=== PATIENT | male | born 1940 | race Caucasian/White ===

== ENCOUNTER → 2017-01-03 12:24 | Outpatient (CLI) | payer MEDICARE ==
[2015-04-15 09:10] VITALS: BMI 24.6
[~2017-01-03 12:24] MED LIST: BAYER CHEWABLE81 MG PO; CALCIUM 600 +1 EAC3 PO; COLACE100 MG PO; CORDARONE200 MG PO; HEMOCYTE PLUS C1 CAP PO; LASIX20 MG PO; MULTIPLE VITAMI1 TA1 PO; NEXIUM40 MG PO; OMEGA 3 FISH OI1 CAP PO; PLAVIX75 MG PO; PROSCAR5 MG PO; SENOKOT-S TABLE1 TAB PO; TOPROL XL25 MG; ULTRAM50 MG PO; XANAX XR 1 MG TA1 MG PO; ZOCOR40 MG PO
== END | disposition home or self-care (01) ==
LOC: D.CT 12:24
DX: C34.90 Malignant neoplasm of unspecified part of unspecified bronchus or lung (principal); C79.9 Secondary malignant neoplasm of unspecified site

== ENCOUNTER → 2017-03-09 11:57 | Outpatient (CLI) | payer MEDICARE ==
[2015-04-15 09:10] VITALS: BMI 24.6
== END | disposition home or self-care (01) ==
LOC: D.CT 11:57
DX: C33 Malignant neoplasm of trachea (principal); C77.1 Secondary and unspecified malignant neoplasm of intrathoracic lymph nodes; C77.0 Secondary and unspecified malignant neoplasm of lymph nodes of head, face and neck

== ENCOUNTER 2017-03-26 10:15 | Emergency (ER) | payer MEDICARE ==
[2015-04-15 09:10] VITALS: BMI 24.6
[2017-03-26 11:11] LABS: BASOPHILS 0.2 % (0-2); EOSINOPHILS 2.2 % (0-7); HEMATOCRIT 42.8 % (42.0-54.0); IMMATURE GRANULOCYTES 0.2 % (0-5); LYMPHOCYTES 8.3 % (15-50); MCHC 32.7 g/dL (31.0-37.0); MCV 91.6 fL (80.0-100.0); MEAN PLATELET VOLUME 9.8 fL (7.4-10.4); MONOCYTES 2.2 % (2-11); NEUTROPHILS 86.9 % (40-80); RBC 4.67 10x6/uL (4.20-6.10); RDW 13.9 % (11.5-14.5); WBC 5.6 10x3/uL (4.8-10.8)
[2017-03-26 11:16] LABS: PLATELET COUNT 156 10x3/uL (130-400)
[2017-03-26 11:32] LABS: APTT 26.9 SECONDS (22.8-39.4); INR 0.93 (0.85-1.17); PROTIME 12.3 SECONDS (11.6-15.0)
[2017-03-26 11:48] LABS: ALBUMIN 3.5 g/dL (3.4-5.0); ALKALINE PHOSPHATASE 75 U/L (46-116); ALT (SGPT) 22 U/L (10-68); BILIRUBIN - TOTAL 0.51 mg/dL (0.2-1.3); CALC OSMOLALITY 275 mosm/kg (275-300); CARBON DIOXIDE 29.8 mmol/L (21.0-32.0); CHLORIDE - SERUM 100 mmol/L (98-107); GLUCOSE 107 mg/dL (74-106); PROTEIN - SERUM 7.6 g/dL (6.4-8.2); SODIUM 137 mmol/L (136-145); UREA NITROGEN 17 mg/dL (7-18); eGFR NON AFRICAN AMERICAN 77 mL/min (90-120)
== END 2017-03-26 12:07 | disposition home or self-care (01) ==
LOC: D.ER 10:15
PROVIDERS: Emergency Medicine; Nurse Practitioner Acute Care
DX: R04.2 Hemoptysis (principal); I10 Essential (primary) hypertension; C34.90 Malignant neoplasm of unspecified part of unspecified bronchus or lung; C79.9 Secondary malignant neoplasm of unspecified site

== ENCOUNTER → 2017-04-26 11:22 | Outpatient (CLI) | payer MEDICARE ==
[2015-04-15 09:10] VITALS: BMI 24.6
== END | disposition home or self-care (01) ==
LOC: D.RAD 11:22
DX: R06.02 Shortness of breath (principal)

== ENCOUNTER 2017-05-06 11:55 | Inpatient (IN) | payer MEDICARE ==
[~2017-05-06] VITALS: Ht 172.7 cm; Wt 60.8 kg
--- NOTE | ~2017-05-06 | CN ---
PATIENT NAME:DONNIE BATES MEDICAL RECORD: [id number] : 38 LOCATION:D.MS [id number] ADMIT DATE: 05/06/17 ACCOUNT: [id number] CONSULTING PHYSICIAN: MARTHA DOBBINS MD REFERRING PHYSICIAN: KATRINA NAGEL MD DATE OF CONSULTATION: 05/08/2017 CHIEF COMPLAINT: Difficulty breathing. I have discussed this case personally with Dr. Miller. I personally reviewed the CT images. The patient has lung cancer. He has a huge right neck mass with tracheal deviation to the left. I have personally reviewed the bronchoscopic pictures with Dr. Miller. The patient appears to have tumor infiltration into the left main stem bronchus. There is mediastinal shift. He has compression or at least abutment of the left main stem bronchus by the main pulmonary artery. I am fearful with placement of a stent would lead to rupture of the bronchus or exsanguinating hemorrhage from the tumor or exsanguinating hemorrhage from the main pulmonary artery. I do not think there is really much that we can do for palliation for this patient to make it more comfortable during the dying process. I have discussed my findings with Dr. Miller as well as with the patient. This is a consultation note addendum. For the typed portion of the consult note, please see the chart. This would include a past medical and surgical history, current medications, social history, family history and allergies. Nothing aggravates. Nothing alleviates. The patient has had some hemoptysis. The patient is short of breath at rest. He has dyspnea on exertion as well. He has completed atelectasis of the left lung. I can see a little bit of the left upper lobe bronchus on a CT scan. I think that it is really a hopeless situation and I have explained this to him. PHYSICAL EXAMINATION: GENERAL: The patient appears acutely ill. Also appears chronically ill. VITAL SIGNS: Reviewed. EARS: External ears appear normal. NECK: Trachea shifted to left. There is a huge right neck mass. PULMONARY: Labored, decreased breath sounds on left chest. There are intercostal retractions. CARDIOVASCULAR: Regular rhythm. ABDOMEN: No peritonitis with movement. EXTREMITIES: No peripheral cyanosis. INTEGUMENT: No intertriginous rash. PSYCHIATRIC: Anxious affect. NEUROLOGIC: Answers questions appropriately, moves all extremities well. BACK: Mild thoracic kyphosis is present. LYMPHATICS: No lymphangitic streaking of the exposed extremities. IMPRESSION: Metastatic lung cancer with mediastinal adenopathy, huge right neck mass as well as invasion of the left main stem bronchus and probable compression of the main stem bronchus on the left between tumor, which may be infiltrating the main stem bronchus and the pulmonary arterial outflow. PLAN: I think that the patient is unacceptable risk for endobronchial stent CONSULT REPORT [id number] DONNIE BATES placement. I think this would almost surely cause some kind of catastrophic problem even if I was able to create a tunnel with the argon plasma home health care coordinator. There is a significant chance that we would burn a hole into the tumor causing hemorrhage or the pulmonary arterial outflow causing hemorrhage. I think that placement of the stent under fluoroscopic guidance would also be disastrous and lead to exsanguinating hemorrhage. I don't think there is much we can do regarding palliation for this patient with any kind of stenting procedure. TRANSINT:[id number] Voice Confirmation ID: [id number] DOCUMENT ID: [id number] MARTHA DOBBINS MD CC: [id number] DICTATION DATE: 05/08/171947 TELEVISION PICTURE TUBE REBUILDER: 05/08/17 234 ADM IN [facility] [address] [id number]
--- NOTE | ~2017-05-06 | OP ---
PATIENT NAME: DONNIE BATES MEDICAL RECORD: [id number] :38 LOCATION:D.MS [id number] ADMISSION DATE:05/06/17 SURGEON: MELINDA SNEED MD OPERATION DATE: 05/06/17 DATE OF OPERATION: 05/08/2017 PROCEDURE: Fiberoptic bronchoscopy. INDICATION: Mr. Batse is a 77-year-old gentleman, who is diagnosed with CA of the lung. Now, he presented with a total atelectasis of the left lung. Fiberoptic bronchoscopy was carried out to inspect the airway and also to look at the bleeding site. MONITORING: EKG, pulse, blood pressure and SpO2 were monitored throughout the procedure. MEDICATIONS: Versed 4 mg IV in divided doses, fentanyl 50 mcg IV, atropine 0.6 mg IV times 1 and Phenergan 12.5 mg IV times 1. PROCEDURE IN DETAIL: After obtaining conscious sedation, the fiberoptic bronchoscope was easily passed through the mouth. The vocal cords were normal, moving equally on phonation. There was dark blood at the vallecula. The epiglottis were normal. There was also dark blood in the main trachea. There was no tracheal mass seen. The antonietta was splayed. There was total occlusion of the left main bronchus and the mass was protruding from the left main bronchus. There was dark clotted blood in the right main bronchus and the right lower lobe. After clearing the blood clots, there was no active bleeding seen. Specimen washing was obtained for routine culture and sensitivity, AFB and fungus. We will consult Dr. Dobbins, but I will doubt that he will be able to put any stent in the left main bronchus because it is totally occluded by the polypoid mass in the left main bronchus. TRANSINT:[id number] Voice Confirmation ID: [id number] DOCUMENT ID: [id number] MELINDA SNEED MD CC: KATRINA NAGEL MD and MARTHA DOBBINS MD [id number] DICTATION DATE: 05/08/17 1308 BUSINESS REPORTING DEVELOPER: 05/08/172027 ADM IN [facility] [address] [facility] [place] [address]
[2017-05-06 13:56] LABS: BASOPHILS 0.2 % (0-2); EOSINOPHILS 0.9 % (0-7); HEMATOCRIT 39.9 % (42.0-54.0); HEMOGLOBIN 13.1 g/dL (13.5-17.5); IMMATURE GRANULOCYTES 0.2 % (0-5); MCH 29.4 pg (26.0-34.0); MCHC 32.8 g/dL (31.0-37.0); MCV 89.7 fL (80.0-100.0); MEAN PLATELET VOLUME 9.1 fL (7.4-10.4); MONOCYTES 3.2 % (2-11); NEUTROPHILS 89.5 % (40-80); PLATELET COUNT 275 10x3/uL (130-400); RBC 4.45 10x6/uL (4.20-6.10); RDW 15.9 % (11.5-14.5); WBC 6.7 10x3/uL (4.8-10.8)
[2017-05-06 14:04] LABS: INR 0.94 (0.85-1.17); PROTIME 12.4 SECONDS (11.6-15.0)
[2017-05-06 14:11] LABS: ALBUMIN 3.1 g/dL (3.4-5.0); ALKALINE PHOSPHATASE 73 U/L (46-116); ALT (SGPT) 15 U/L (10-68); BILIRUBIN - TOTAL 0.52 mg/dL (0.2-1.3); CALC OSMOLALITY 269 mosm/kg (275-300); CALCIUM 9.2 mg/dL (8.5-10.1); CARBON DIOXIDE 30.5 mmol/L (21.0-32.0); CHLORIDE - SERUM 98 mmol/L (98-107); CREATININE - SERUM 0.8 mg/dL (0.6-1.3); GLUCOSE 103 mg/dL (74-106); POTASSIUM - SERUM 4.2 mmol/L (3.5-5.1); PROTEIN - SERUM 7.6 g/dL (6.4-8.2); SODIUM 135 mmol/L (136-145); UREA NITROGEN 12 mg/dL (7-18); eGFR NON AFRICAN AMERICAN > 90 mL/min (90-120)
--- NOTE | 2017-05-06 16:50 | NUR ---
RECIEVED PT TO THE FLOOR AT THIS TIME FROM ER, PT ORIENTED TO ROOM. ASSESSMENT DONE PER FLOWSHEET AND HISTORY OBTAINED. BED IN LOW POSITION AND CALL LIGHT WITHIN REACH. WILL CONTINUE TO MONITOR.
--- NOTE | 2017-05-06 17:40 | NUR ---
SPOKE WITH NATHAN WITH 'S OFFICE ABOUT PT BEING SCHEDULED FOR RADIATION TOMORROW AT 1000. SHE INFORMED ME TO TELL THE PT TO CALL TOMORROW TO CANCEL RADIATION THERAPY. RECIEVED A VERBAL ORDER TO GIVE A ONE TIME DOSE OF NIGHT TIME MEDICATIONS AND MEDICATIONS WOULD BE RE-NEWED IN THE AM. NO OTHER ORDERS OBTAINED. BED IN LOW POSITION AND CALL LIGHT WITHIN REACH. WILL CONTINUE TO MONITOR.
[2017-05-06] MEDS ORDERED: ZOCOR40 MG PO (18:06)
[2017-05-06] MEDS ORDERED: HYDROCODONE-APA1 TAB PO (18:07)
[2017-05-06] MEDS ORDERED: XANAX1 MG PO (18:08)
[2017-05-06] MEDS ORDERED: DURAGESIC1 PATCH .1 TRANSDERM (18:09)
[2017-05-06] MEDS ORDERED: MUCINEX600 MG PO (18:10)
[2017-05-06] MEDS ORDERED: MIRALAX17 GM PO (18:11)
[2017-05-06 18:35] VITALS: BP 106/74; BMI 20.4
[2017-05-06 20:00] VITALS: BP 100/52
[2017-05-07] VITALS: BP 108/60
--- NOTE | 2017-05-07 01:28 | NUR ---
REST QUIETLY IN BED, EYE CLOSE, BED LOW, CALL LIGHT WITHIN REACH.
--- NOTE | 2017-05-07 02:00 | NUR ---
PT IN BED WITH NO DISTRESS. RESPIRATIONS EVEN AND UNLABORED. SIDE RAILS X 2. BED IS LOW. CALL LIGHT IN REACH.
[2017-05-07 04:00] VITALS: BP 98/64
--- NOTE | 2017-05-07 07:55 | NUR ---
AWAKE AND ALERT AT THIS TIME. ASSESSMENT PERFORMED PER FLOWSHEET. PT CONTINUES TO COUGH UP BRIGHT, RED BLOOD. IV TO RIGHT FOREARM PATENT. DENIES NEEDS OR PAIN AT THIS TIME. CALL LIGHT IN REACH. WILL CONTINUE WITH PLAN OF CARE.
[2017-05-07 08:32] VITALS: BP 104/68
--- NOTE | 2017-05-07 10:58 | NUR ---
ORDER OBTAINED TO RESTART PATIENT'S HOME MEDICATIONS. ADMINISTERED AT THIS TIME. PT DENIES PAIN. CALL LIGHT IN REACH, WILL CONTINUE WITH PLAN OF CARE.
--- NOTE | 2017-05-07 12:06 | NUR ---
PRN ZOFRAN 8MG ADMINISTERED FOR NAUSEA WITHOUT EMESIS AT THIS TIME.
[2017-05-07 12:44] VITALS: BP 103/76
[2017-05-07 14:11] VITALS: Ht 172.7 cm; Wt 60.8 kg
[2017-05-07 16:15] VITALS: BP 109/78
[2017-05-07 20:00] VITALS: BP 131/75
[2017-05-08] VITALS: BP 100/66
[2017-05-08 04:03] VITALS: BP 121/69
[2017-05-08 05:49] LABS: BASOPHILS 0 % (0-2); EOSINOPHILS 0.2 % (0-7); HEMOGLOBIN 11.4 g/dL (13.5-17.5); IMMATURE GRANULOCYTES 0.2 % (0-5); LYMPHOCYTES 3.1 % (15-50); MCH 29.2 pg (26.0-34.0); MCHC 32.6 g/dL (31.0-37.0); MCV 89.7 fL (80.0-100.0); MEAN PLATELET VOLUME 9.4 fL (7.4-10.4); NEUTROPHILS 94.5 % (40-80); PLATELET COUNT 288 10x3/uL (130-400)
[2017-05-08 05:56] LABS: WBC 4.5 10x3/uL (4.8-10.8)
[2017-05-08 06:10] LABS: CALC OSMOLALITY 268 mosm/kg (275-300); CALCIUM 9.2 mg/dL (8.5-10.1); CARBON DIOXIDE 28.7 mmol/L (21.0-32.0); CHLORIDE - SERUM 96 mmol/L (98-107); CREATININE - SERUM 0.9 mg/dL (0.6-1.3); GLUCOSE 129 mg/dL (74-106); POTASSIUM - SERUM 4.2 mmol/L (3.5-5.1); SODIUM 132 mmol/L (136-145); eGFR NON AFRICAN AMERICAN 87 mL/min (90-120)
[2017-05-08 06:20] LABS: UREA NITROGEN 17 mg/dL (7-18)
[2017-05-08 08:43] VITALS: BP 111/55
[2017-05-08 13:56] VITALS: BP 103/56
[2017-05-08 16:17] VITALS: BP 110/60
[2017-05-08 20:00] VITALS: BP 110/71
[2017-05-09] VITALS: BP 114/64
--- NOTE | 2017-05-09 00:33 | NUR ---
PATIENT IS RESTING QUIETLY WITH EYES CLOSED. NO SIGNS OF DISTRESS NOTED. HOB 40 DEGREES. RESPIRATIONS ARE EVEN AND UNLABORED. BED IN LOWEST POSITION, CALL LIGHT IN REACH. BED RAILS UP X'S 2. DOOR OPEN.
[2017-05-09 03:47] VITALS: BP 104/61
[2017-05-09 05:18] LABS: BASOPHILS 0 % (0-2); EOSINOPHILS 0 % (0-7); HEMATOCRIT 31.9 % (42.0-54.0); HEMOGLOBIN 10.6 g/dL (13.5-17.5); IMMATURE GRANULOCYTES 0.4 % (0-5); LYMPHOCYTES 2.4 % (15-50); MCH 29.5 pg (26.0-34.0); MCHC 33.2 g/dL (31.0-37.0); MCV 88.9 fL (80.0-100.0); MEAN PLATELET VOLUME 9.4 fL (7.4-10.4); MONOCYTES 2.1 % (2-11); NEUTROPHILS 95.1 % (40-80); PLATELET COUNT 263 10x3/uL (130-400); RBC 3.59 10x6/uL (4.20-6.10); WBC 7.1 10x3/uL (4.8-10.8)
[2017-05-09 05:41] LABS: CALC OSMOLALITY 275 mosm/kg (275-300); CALCIUM 8.9 mg/dL (8.5-10.1); CARBON DIOXIDE 30.5 mmol/L (21.0-32.0); CHLORIDE - SERUM 97 mmol/L (98-107); CREATININE - SERUM 0.8 mg/dL (0.6-1.3); GLUCOSE 124 mg/dL (74-106); POTASSIUM - SERUM 3.8 mmol/L (3.5-5.1); SODIUM 137 mmol/L (136-145); UREA NITROGEN 16 mg/dL (7-18); eGFR NON AFRICAN AMERICAN > 90 mL/min (90-120)
--- NOTE | 2017-05-09 07:30 | NUR ---
REPORT RECEIVED CLAY AGUIAR RN. CALL ARNIE HOLT.
[2017-05-09 08:42] VITALS: BP 135/70
--- NOTE | 2017-05-09 09:50 | NUR ---
OFFERED SCDs BUT REFUSES AT THIS TIME.
--- NOTE | 2017-05-09 10:46 | NUR ---
ASSESSMENT COMPETED. AM MEDS ADMINISTERED. CALL LIGHT IN REACH. WILL CONTINUE WITH PLAN OF CARE.
--- NOTE | 2017-05-09 10:50 | NUR ---
PATIENT ALERT IN HIGH GREGORY POSITION. NO SIGNS OF DISTRESS NOTED. SIDE RAILS UP X2. BED IN LOW POSITION. CALL LIGHT IN REACH.
--- NOTE | 2017-05-09 10:51 | NUR ---
NUTRITION MONITORING & EVAL CHART REVIEWED, PT VISIT. DIET RESUMED FOR LUNCH. RD FOLLOWING
[2017-05-09 11:59] VITALS: BP 129/78
[2017-05-09 14:21] LABS: FUNGUS STAIN Final report (())
[2017-05-09 15:10] VITALS: BP 135/86
[2017-05-09 18:09] LABS: ACID FAST SMEAR Negative (()); AFB SPECIMEN PROCESSING Concentration (())
--- NOTE | 2017-05-09 19:15 | NUR ---
BEDSIDE REPORT RECEIVED AND CARE OF PT ASSUMED. PT LYING IN SEMI GREGORY'S POSITION WATCHING. TV. PT HAVING PRODUCTIVE COUGH WITH BLOODY SPUTUM. LUNGS SOUNDS DIMINISHED. IV IN RIGHT FA PATENT WITH NS INFUSING AT 10 ML / HR. WILL MONITOR CLOSLEY FOR NEEDS. CALL LIGHT WITHIN REACH.
[2017-05-09 20:00] VITALS: BP 116/68
--- NOTE | 2017-05-09 21:39 | NUR ---
HS MEDICATIONS GIVEN. WILL CONTINUE TO MONITOR FOR NEEDS.
[2017-05-10] VITALS: BP 111/71
--- NOTE | 2017-05-10 01:38 | NUR ---
PT RESTING QUIETLY IN SEMI GREGORY'S POSITON WITH EYES CLOSED AND EASY RESPIRATIONS. O2 IN USE AT 2.5 ML VIA NC.
[2017-05-10 04:00] VITALS: BP 116/71
[2017-05-10 05:53] LABS: BASOPHILS 0 % (0-2); EOSINOPHILS 0 % (0-7); HEMATOCRIT 33.5 % (42.0-54.0); IMMATURE GRANULOCYTES 0.3 % (0-5); LYMPHOCYTES 3.6 % (15-50); MCHC 32.8 g/dL (31.0-37.0); MCV 88.4 fL (80.0-100.0); NEUTROPHILS 90.1 % (40-80); RBC 3.79 10x6/uL (4.20-6.10); RDW 16.1 % (11.5-14.5); WBC 6.1 10x3/uL (4.8-10.8)
[2017-05-10 06:13] LABS: CALC OSMOLALITY 271 mosm/kg (275-300); CALCIUM 9.2 mg/dL (8.5-10.1); CARBON DIOXIDE 30.8 mmol/L (21.0-32.0); CHLORIDE - SERUM 97 mmol/L (98-107); GLUCOSE 120 mg/dL (74-106); POTASSIUM - SERUM 3.8 mmol/L (3.5-5.1); SODIUM 134 mmol/L (136-145); eGFR NON AFRICAN AMERICAN 77 mL/min (90-120)
[2017-05-10 06:14] LABS: UREA NITROGEN 22 mg/dL (7-18)
[2017-05-10 06:18] LABS: PLATELET COUNT 202 10x3/uL (130-400)
--- NOTE | 2017-05-10 07:45 | NUR ---
PT ASSESSMENT COMPLETE NO ACUTE DISTRESS NOTED REFUSED SCDS. PT UP AD AMADO WITH MINIMAL ASSIST OF STAFF DUE TO SOME WEAKNESS. CALL LIGHT IN REACH SIDE RAILS UP X 2
[2017-05-10 08:09] VITALS: BP 117/75
[2017-05-10] MEDS ORDERED: XANAX1 MG PO (09:08)
[2017-05-10] MEDS ORDERED: ZOCOR40 MG PO (09:08)
[2017-05-10] MEDS ORDERED: CALCIUM 600 +1 EAC3 PO (09:09)
[2017-05-10] MEDS ORDERED: MUCINEX600 MG PO (09:09)
[2017-05-10] MEDS ORDERED: DURAGESIC1 PATCH .1 TRANSDERM (09:09)
[2017-05-10] MEDS ORDERED: HYDROCODONE-APA1 TAB PO (09:09)
[2017-05-10] MEDS ORDERED: MIRALAX17 GM PO (09:10)
[2017-05-10] MEDS ORDERED: MULTIPLE VITAMI1 TA1 PO (09:10)
[2017-05-10] MEDS ORDERED: PROSCAR5 MG PO (09:10)
[2017-05-10] MEDS ORDERED: NEXIUM40 MG PO (09:10)
[2017-05-10 11:44] VITALS: BP 136/61
--- NOTE | 2017-05-10 11:59 | NUR ---
CM SPOKE WITH PATIENT AND HE CHOSE [facility] AND REFERRAL HAS BEEN SENT. PATIENT STATED HE HAS ALSO SPOKE WITH HIS SON REGARDING HIS DECISION AND HE AGREES.
--- NOTE | 2017-05-10 12:30 | NUR ---
PATIENT ALERT IN HIGH GREGORY POSITION. NO SIGNS OF DISTRESS NOTED. SIDE RAILS UP X2. BED IN LOW POSITION. CALL LIGHT IN REACH.
[2017-05-10 15:25] VITALS: BP 116/74
--- NOTE | 2017-05-10 18:46 | NUR ---
[facility]WAITING [facility] FOR TRANSPORT OF PT TO HOME WITH HOSPICE CARE SPOKE WITH NATHAN BOWEN WITH [facility] TO CALL AND NOTIFY OF TIME LEFT WITH EMS.
--- NOTE | 2017-05-10 19:41 | NUR ---
GAVE SCHEDULED DOSE OF SOLUMEDROL BEFORE REMOVING IV WITH CATHETER TIP INTACT. WAITING ON AMBULANCE TO TRANSPORT TO HOME.
--- NOTE | 2017-05-10 20:37 | NUR ---
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 ALL BELONGINGS SENT WITH PATIENT.
--- NOTE | 2017-05-11 14:56 | NUR ---
LATE ENTRY: PATIENT D/C HOME WITH [facility] ON 05/10/17
== END 2017-05-10 20:39 | disposition home health service (06) | DRG 180 ==
LOC: D.ER 11:55 → D.MS 15:42
PROVIDERS: Emergency Medicine; Internal Medicine Pulmonary Disease; ADMIT Legal Medicine
PROC: 0BB38ZX Excision of Right Main Bronchus, Via Natural or Artificial Opening Endoscopic, Diagnostic (ICD-10-PCS; principal; 2017-05-08 13:01)
DX: C34.02 Malignant neoplasm of left main bronchus (principal); J96.01 Acute respiratory failure with hypoxia; R04.2 Hemoptysis; C79.9 Secondary malignant neoplasm of unspecified site; J98.11 Atelectasis; D62 Acute posthemorrhagic anemia; J44.1 Chronic obstructive pulmonary disease with (acute) exacerbation; I10 Essential (primary) hypertension; K21.9 Gastro-esophageal reflux disease without esophagitis; F41.9 Anxiety disorder, unspecified; E78.5 Hyperlipidemia, unspecified; I48.91 Unspecified atrial fibrillation; I25.10 Atherosclerotic heart disease of native coronary artery without angina pectoris; Z87.891 Personal history of nicotine dependence